=== PATIENT | male | born 1950 | race Caucasian/White ===

== ENCOUNTER 2018-09-15 17:41 | Inpatient (IN) | payer OTHER, MEDICARE ==
[~2018-09-15] VITALS: Ht 182.9 cm; Wt 70.6 kg
--- NOTE | 2018-09-15 18:45 | NUR ---
BLOOD DRAW VIA RT UPPER PICC OK PER DR ROLON
[2018-09-15 18:46] LABS: MEAN CORPUSCULAR HEMOGLOBIN 31.1 pg (27.5-34.5); MEAN CORPUSCULAR HGB CONC 34.7 g/dL (33.2-36.2); MEAN CORPUSCULAR VOLUME 89.7 fL (81-97); PLATELET COUNT 420 x10^3/uL (130-400); RED BLOOD COUNT 4.15 x10^6/uL (4.38-5.82); RED CELL DISTRIBUTION WIDTH 13.6 % (9.4-14.8)
[2018-09-15 18:57] LABS: ALANINE AMINOTRANSFERASE 188 U/L (12-78); ALBUMIN 2.1 g/dL (3.4-5.0); ANION GAP 13 mmol/L (5-15); CALCIUM 8.2 mg/dL (8.5-10.1); CHLORIDE 97 mmol/L (98-107)
[2018-09-15 19:00] LABS: ALKALINE PHOSPHATASE 619 U/L (45-117); BILIRUBIN,TOTAL 0.7 mg/dL (0.2-1.0); CREATININE 0.82 mg/dL (0.7-1.3); TOTAL PROTEIN 6.9 g/dL (6.4-8.2)
--- NOTE | 2018-09-15 19:07 | NUR ---
REPORT REC, AWAIT FURTHER ORDERS.
[2018-09-15 19:10] LABS: BASOPHILS # (AUTO) 0.04 x10^3/uL (0-0.1); BASOPHILS % (AUTO) 0 % (0-1); EOSINOPHILS # (AUTO) 0.19 x10^3/uL (0-0.4); EOSINOPHILS % (AUTO) 1 % (1-7); LYMPHOCYTES # (AUTO) 0.84 x10^3/uL (1-3.4); LYMPHOCYTES % (AUTO) 5 % (22-44); MD SCAN; MONOCYTES # (AUTO) 2.04 x10^3/uL (0.2-0.8); MONOCYTES % (AUTO) 13 % (2-9); NEUTROPHILS % (AUTO) 81 % (42-75)
[2018-09-15] MEDS ORDERED: SODIUM CHLORIDE 0.9% 1,000 ML IV ONE (19:29)
[2018-09-15] MEDS ORDERED: POTASSIUM CHLORIDE 40 MEQ in SODIUM CHLORIDE 0.9% 100 ML IV ONE (19:30)
[2018-09-15] MEDS ORDERED: POTASSIUM CHLORIDE 20 MEQ in SODIUM CHLORIDE 0.9% 250 ML IV ONE (19:30)
--- NOTE | 2018-09-15 19:38 | NUR ---
Fluids infusing as per order, cxr done prior to infusing potassium to ensure PICC line in proper location. Pt aware of plan of care, very pleasant gentleman in NAD at this time. Family member at bedside, call ramirez in reach and both aware of use. Labs drawn as well.
--- NOTE | 2018-09-15 20:07 | NUR ---
PT AND BILL ARE REQUESTING THAT NO MORE BLOOD BE DRAWN AT THIS TIME, AWARE THAT HT[facility] IS THEIR RIGHT AND MD AWARE. CLEARS PICC LINE FOR USE WITH bacilio SOTO.
[2018-09-15] MEDS ORDERED: TAMS-11 PO (20:42)
[2018-09-15] MEDS ORDERED: MIRT30TA3 PO (20:42)
[2018-09-15] MEDS ORDERED: LISI-167 PO (20:42)
--- NOTE | 2018-09-15 20:53 | NUR ---
REPORT TO KEENA AT THIS TIME.
--- NOTE | 2018-09-15 20:58 | NUR ---
HOSPITALIST AT BEDSIDE THEN PT TO BE TRANSPORTED.
[2018-09-15 21:27] VITALS: BP 114/70
[2018-09-15] MEDS ORDERED: LIDODERM 5% PATCH TD PRN (21:30)
[2018-09-15] MEDS ORDERED: hydrALAzine 20 MG/ML, 1ML IVPush PRN (21:30)
[2018-09-15] MEDS ORDERED: ENOXAPARIN 40 MG/0.4 ML SQ SCH (21:30)
[2018-09-15] MEDS ORDERED: ONDANSETRON ODT 4 MG PO PRN (21:30)
[2018-09-15] MEDS ORDERED: MAGNESIUM SULFATE 4 GM in SODIUM CHLORIDE 0.9% 100 ML IV ONE (21:30)
[2018-09-15] MEDS ORDERED: DOCUSATE 100 MG CAPSULE PO PRN (21:30)
[2018-09-15] MEDS ORDERED: HYDROcodone/APAP 5/325 TABLET PO PRN (21:30)
[2018-09-15] MEDS ORDERED: ACETAMINOPHEN 325 MG TABLET PO PRN (21:30)
[2018-09-15] MEDS ORDERED: MAGNESIUM SULFATE PMX 4GM/100M 100 ML IVPB ONE (22:00)
[2018-09-15 23:45] VITALS: BP 101/76
[2018-09-16 02:01] VITALS: BP 110/73
[2018-09-16] MEDS: D5%-0.45NACL+KCL 20MEQ 1,000 ML IV SCH ×2 (03:46→15:33)
[2018-09-16 07:30] VITALS: BP 127/81
[2018-09-16 08:24] LABS: MEAN CORPUSCULAR HEMOGLOBIN 30.7 pg (27.5-34.5); MEAN CORPUSCULAR HGB CONC 34.1 g/dL (33.2-36.2); MEAN PLATELET VOLUME 7.3 fL (7.4-10.4); PLATELET COUNT 337 x10^3/uL (130-400); RED BLOOD COUNT 3.45 x10^6/uL (4.38-5.82); RED CELL DISTRIBUTION WIDTH 13.3 % (9.4-14.8)
[2018-09-16 08:29] LABS: ANION GAP 5 mmol/L (5-15); CALCIUM 7.4 mg/dL (8.5-10.1); CHLORIDE 102 mmol/L (98-107); CREATININE 0.56 mg/dL (0.7-1.3)
[2018-09-16 08:51] LABS: BASOPHILS % (AUTO) 1 % (0-1); EOSINOPHILS # (AUTO) 0.06 x10^3/uL (0-0.4); EOSINOPHILS % (AUTO) 1 % (1-7); LYMPHOCYTES # (AUTO) 0.75 x10^3/uL (1-3.4); LYMPHOCYTES % (AUTO) 8 % (22-44); MD SCAN; MONOCYTES # (AUTO) 1.56 x10^3/uL (0.2-0.8); MONOCYTES % (AUTO) 16 % (2-9); NEUTROPHILS # (AUTO) 7.56 x10^3/uL (1.8-6.8); NEUTROPHILS % (AUTO) 76 % (42-75)
[2018-09-16] MEDS ORDERED: TAMSULOSIN 0.4 MG CAP.ER.24H PO SCH (09:00)
[2018-09-16] MEDS ORDERED: LISINOPRIL 10 MG TABLET PO SCH (09:00)
[2018-09-16] MEDS ORDERED: MIRTAZAPINE 30 MG TAB.RAPDIS PO SCH (09:00)
[2018-09-16] MEDS ORDERED: POTASSIUM CHLORIDE 40 MEQ in SODIUM CHLORIDE 0.9% 100 ML IV ONE (09:30)
[2018-09-16] MEDS ORDERED: POTASSIUM CHLORIDE 40 MEQ in SODIUM CHLORIDE 0.9% 500 ML IV ONE (09:30)
[2018-09-16] MEDS ORDERED: POTASSIUM CHLORIDE 20 MEQ TAB.ER.PRT PO SCH (11:00)
[2018-09-16 11:12] LABS: ALBUMIN 1.7 g/dL (3.4-5.0); BILIRUBIN, DIRECT 0.2 mg/dL (0.1-0.2)
[2018-09-16 11:14] LABS: BILIRUBIN,INDIRECT 0.3 mg/dL (0.0-2.0); BILIRUBIN,TOTAL 0.5 mg/dL (0.2-1.0); TOTAL PROTEIN 5.5 g/dL (6.4-8.2)
[2018-09-16 13:25] VITALS: BP 143/86
[2018-09-16 15:23] LABS: ANION GAP 6 mmol/L (5-15); CALCIUM 7.4 mg/dL (8.5-10.1); CHLORIDE 104 mmol/L (98-107); CREATININE 0.51 mg/dL (0.7-1.3)
[2018-09-16] MEDS ORDERED: POTA20TA6 PO (15:44)
== END 2018-09-16 16:15 | disposition home or self-care (01) | DRG 641 ==
LOC: ED 20:04 → EDIP 20:17 → 5SO 21:14
PROVIDERS: ADMIT Hospitalist; ATTEND Hospitalist
DX: E87.6 Hypokalemia (principal); C40.02 Malignant neoplasm of scapula and long bones of left upper limb; E46 Unspecified protein-calorie malnutrition; R64 Cachexia; E83.42 Hypomagnesemia; E86.0 Dehydration; I10 Essential (primary) hypertension; Z79.899 Other long term (current) drug therapy; Z68.21 Body mass index [BMI] 21.0-21.9, adult
CPT/HCPCS: 36415; 71045; 76700; 80048; 80053; 80074; 80076; 83735; 84145; 85025; 93005; 96365; G0378; J3480; J3475; J7030; J7040